=== PATIENT | male | born 1985 | race Caucasian/White ===

== ENCOUNTER 2019-06-09 15:58 | Emergency (ER) | payer MEDICAID ==
[~2019-06-09] VITALS: Ht 172.7 cm; Wt 94.0 kg
[2019-06-09 16:40] LABS: BASOPHILS # (AUTO) 0.06 x10^3/uL (0-0.1); BASOPHILS % (AUTO) 1 % (0-1); EOSINOPHILS % (AUTO) 1 % (1-7); LYMPHOCYTES # (AUTO) 1.24 x10^3/uL (1-3.4); LYMPHOCYTES % (AUTO) 10 % (22-44); MD NO; MEAN CORPUSCULAR HEMOGLOBIN 31.3 pg (27.5-34.5); MEAN CORPUSCULAR HGB CONC 33.9 g/dL (33.2-36.2); MEAN CORPUSCULAR VOLUME 92.3 fL (81-97); MEAN PLATELET VOLUME 8.5 fL (7.4-10.4); MONOCYTES # (AUTO) 0.59 x10^3/uL (0.2-0.8); MONOCYTES % (AUTO) 5 % (2-9); NEUTROPHILS # (AUTO) 10.07 x10^3/uL (1.8-6.8); NEUTROPHILS % (AUTO) 84 % (42-75); PLATELET COUNT 330 x10^3/uL (130-400); RED BLOOD COUNT 5.05 x10^6/uL (4.38-5.82); RED CELL DISTRIBUTION WIDTH 13.2 % (9.4-14.8)
[2019-06-09 16:53] LABS: ALANINE AMINOTRANSFERASE 20 U/L (12-78); ALBUMIN 3.9 g/dL (3.4-5.0); ANION GAP 4 mmol/L (5-15); CALCIUM 8.9 mg/dL (8.5-10.1); CHLORIDE 107 mmol/L (98-107); CREATININE 0.87 mg/dL (0.7-1.3)
[2019-06-09 16:55] LABS: ALKALINE PHOSPHATASE 64 U/L (45-117); BILIRUBIN,TOTAL 0.4 mg/dL (0.2-1.0); TOTAL PROTEIN 7.8 g/dL (6.4-8.2)
--- NOTE | 2019-06-09 17:14 | NUR ---
TO ROOM FROM LOBBY.
[2019-06-09] MEDS ORDERED: ONDANSETRON ODT 4 MG ONE (17:22)
[2019-06-09] MEDS ORDERED: DICYCLOMINE 20 MG TABLET ONE (17:22)
[2019-06-09] MEDS ORDERED: DICYCLOMINE 10 MG/ML, 2ML ONE (17:27)
[2019-06-09] MEDS ORDERED: ONDANSETRON ODT 4 MG PO ONE (17:30)
[2019-06-09] MEDS ORDERED: DICYCLOMINE 20 MG TABLET PO ONE (17:30)
[2019-06-09] MEDS ORDERED: OMNIPAQUE 350 MG/ML, 100ML BOTTLE ONE (18:00)
[2019-06-09] MEDS ORDERED: DICYCLOMINE 10 MG/ML, 2ML IM ONE (18:00)
--- NOTE | 2019-06-09 18:52 | NUR ---
REPORT FROM JESUS LOPEZ ASSUMING CARE OF PT AT THIS TIME
[2019-06-09] MEDS ORDERED: METOCLOPRAMIDE 5 MG/ML, 2ML ONE (19:04)
[2019-06-09] MEDS ORDERED: ONDANSETRON 2MG/ML, 2ML ONE (19:05)
--- NOTE | 2019-06-09 19:10 | NUR ---
PT VOMITING ON FLOOR ADDITIONAL ORDERS RECIEVED PT MEDICATED PER YVETTE
[2019-06-09] MEDS ORDERED: METOCLOPRAMIDE 5 MG/ML, 2ML IVPush ONE (19:30)
[2019-06-09] MEDS ORDERED: ONDANSETRON 2MG/ML, 2ML IVPush ONE (19:30)
[2019-06-09] MEDS ORDERED: PROMETHAZINE 25 MG/ML, 1ML ONE (20:01)
--- NOTE | 2019-06-09 20:05 | NUR ---
PT CONTINUES TO VOMIT MD UPDATED ON PT CONDITION, ADDITIONAL ORDERS FOR NAUSEA MEDICATION. PT MEDICATED PER JUL.
[2019-06-09] MEDS ORDERED: SODIUM CHLORIDE 0.9% 1,000 ML IV ONE (20:30)
[2019-06-09] MEDS ORDERED: PROMETHAZINE 25 MG/ML, 1ML IM ONE (20:30)
[2019-06-09] MEDS ORDERED: SODIUM CHLORIDE 0.9% 1,000 ML IV SCH (21:14)
--- NOTE | 2019-06-09 21:26 | NUR ---
PT RESTING ON OMID ALMEIDA THIS TIME. PT AWARE OF POC
[2019-06-09] MEDS ORDERED: BISACODYL 10 MG SUPP PR PRN (21:30)
[2019-06-09] MEDS ORDERED: NICOTINE 14MG/24 HR PATCH.TD24 TD SCH (21:30)
[2019-06-09] MEDS ORDERED: ONDANSETRON 2MG/ML, 2ML IVPush PRN (21:30)
--- NOTE | 2019-06-09 23:10 | NUR ---
RECEIVED REPORT FROM LORENA LOPEZ. ASSUMING CARE AT THIS TIME.
[2019-06-09 23:44] VITALS: BP 121/60
== END 2019-06-09 23:50 | disposition left against medical advice (07) ==
LOC: ED 20:36 → UNDOADMIN 21:12 → EDIP 21:12 → ED 23:50
DX: R10.84 Generalized abdominal pain (principal); R11.2 Nausea with vomiting, unspecified; F17.200 Nicotine dependence, unspecified, uncomplicated
CPT/HCPCS: 36415; 74177; 80053; 83690; 85025; 96361; 96372; 96374; 96375; 99284; J2405; J2550; J2765; J7030; Q0162; Q9967